=== PATIENT | male | born 1950 | race Caucasian/White ===

== ENCOUNTER 2024-03-17 19:04 | Observation (INO) | payer MEDICARE ==
[2024-03-17 20:09] VITALS: BMI 25.8
[2024-03-17] MEDS ORDERED: traMADol HCl 50 MG TAB PO PRN (21:11)
[2024-03-17] MEDS ORDERED: Ondansetron ODT 4 MG TAB PO PRN (21:11)
[2024-03-17] MEDS ORDERED: Ondansetron PF 4 MG/2 ML Vial IVP PRN (21:11)
[2024-03-17] MEDS ORDERED: Acetaminophen 325 MG TAB PO PRN (21:11)
[2024-03-17] MEDS ORDERED: hydrALAZINE 20 MG/ML VIAL SLOW IVP PRN (21:13)
[2024-03-17] MEDS ORDERED: Dextrose 5% in Water 1,000 ML IV PRN (22:46)
[2024-03-17] MEDS ORDERED: Insulin Lispro 100 UNIT/ML 10 ML VIAL SC PRN (22:46)
[2024-03-17] MEDS ORDERED: Dextrose 50% Abboject 50 ML SYRINGE SLOW IVP PRN (22:46)
[2024-03-17] MEDS ORDERED: Glucagon 1 MG/ML KIT IM PRN (22:46)
[2024-03-18 04:23] LABS: #Basophils 0.03 10x3/uL (0.0-0.2); %Basophils 0.3 % (0.0-1.0); %Eosinophils 3.9 % (0.0-10.0); %Lymphocytes 26.4 % (21.0-51.0); %Monocytes 8.3 % (0.0-10.0); %Neutrophils 60.8 % (42.0-75.0); Hematocrit 39.9 % (42.0-52.0); Hemoglobin 13.5 g/dL (14.0-18.0); Mean Corpuscular HGB CONC 33.8 g/dL (32.0-36.0); Mean Corpuscular Volume 91.7 fL (78.0-98.0); Mean Platelet Volume 12.1 fL (7.4-10.4); Platelet Count 205 10x3/uL (130-400); RBC Distribution Width 11.8 % (11.5-14.5); Red Blood Cell (RBC) Count 4.35 mill/uL (4.70-6.10)
[2024-03-18 04:39] LABS: ALT (SGPT) 17 U/L (8-55); AST (SGOT) 18 U/L (5-34); Albumin 3.5 g/dL (3.4-4.8); Alkaline Phosphatase 70 U/L (40-110); Anion Gap 11 mmol/L (10-20); BUN (Urea Nitrogen) 12 mg/dL (8.4-25.7); Bilirubin, Total 0.4 mg/dL (0.2-1.2); Calc. Creatinine Clearance 80 mL/min (70-130); Calcium 9.5 mg/dL (7.8-10.44); Carbon Dioxide 26 mmol/L (23-31); Cardiac Risk 5.9 (Less than 4.5); Chloride 106 mmol/L (98-107); Cholesterol 164 mg/dl (< 200 Desired); Estimated GFR 90; Globulin 2.5 g/dL (2.4-3.5); Glucose 209 mg/dL (83-110); HDL Cholesterol 28 mg/dL (>60 Neg Risk); LDL Cholesterol, Calculated 92 mg/dL; Potassium 3.9 mmol/L (3.5-5.1); Sodium 139 mmol/L (136-145); Triglycerides 218 mg/dL (Less than 150)
[2024-03-18] MEDS: Insulin Lispro 100 UNIT/ML 10 ML VIAL SC PRN (06:17)
[2024-03-18] MEDS: Enoxaparin 40 MG (0.4 mL) SYRINGE SC SCH (09:05)
[2024-03-18] MEDS: Famotidine 20 MG TAB PO SCH (09:05)
[2024-03-18] MEDS: Aspirin 81 mg Enteric Coated Tablet PO SCH (09:05)
[2024-03-18] MEDS: Clopidogrel Bisulfate 75 MG TAB PO SCH (09:05)
[2024-03-18] MEDS: Famotidine/PF 20 mg/2ml Vial SLOW IVP SCH (09:06)
[2024-03-18 12:32] VITALS: BP 124/64; TEMP 97.8
[2024-03-18] MEDS ORDERED: Atorvastatin Calcium 40 MG TAB PO SCH (21:00)
== END 2024-03-18 16:05 | disposition home or self-care (01) ==
LOC: 2SE 19:55
PROVIDERS: ADMIT Internal Medicine; ATTEND Internal Medicine
DX: R47.81 Slurred speech (principal); I66.21 Occlusion and stenosis of right posterior cerebral artery; I65.01 Occlusion and stenosis of right vertebral artery; I10 Essential (primary) hypertension; E11.9 Type 2 diabetes mellitus without complications; E78.5 Hyperlipidemia, unspecified; Z79.899 Other long term (current) drug therapy
CPT/HCPCS: 70551; 80053; 80061; 82962; 85025; 93306; 96372; G0378 ×2; J1650; J1815; 36415; 36416